=== PATIENT | female | born 1950 | race American Indian/Alaskan Native ===

== ENCOUNTER 2018-01-03 14:15 | Emergency (ER) | payer MEDICARE ==
--- NOTE | 2018-01-03 14:54 | Emergency Department Report ---
Blank Doc - Documentation Documentation: Patient is a 67-year-old black female who is complaining of chest pain. Patient states that she only gets chest pain for last several months when she gets cold. Patient was at her doctor's office and mentioned this and she was sent in for evaluation. Patient states that there is no shortness of breath is no exertional component to her chest discomfort and it only occurs when she is cold when she goes out to the side or moves to a warmer area her chest pain dissipates. Patient states that she has had AL in the past that was a heavy sensation she states this feels much different from. Patient denies any cough cold congestion and fevers chills at this time. The patient's EKG was reviewed and this does not appear to be a STEMI present. Patient's was Warmed Blankets s she remained warm. Chest x-ray and troponin was ordered to rule out acute coronary syndrome. Patient is chest pain-free and has been for several hours. .
[2018-01-03 16:10] LABS: Chol/HDL Ratio 4.5 %
--- NOTE | 2018-01-03 16:42 | XRay Report ---
FINAL REPORT EXAM: XR CHEST ROUTINE 2V HISTORY: chest pain TECHNIQUE: Frontal portable view of the chest Comparison: Chest x-ray dated October 09, 2017 FINDINGS: There is probable atelectasis in the left lateral lung base. There is no evidence of pneumothorax or pleural fluid collection. The cardiac silhouette is enlarged with evidence of coronary artery stents. The thoracic aorta is mildly tortuous with atherosclerotic vascular calcification. The bony structures are notable for median sternotomy wires. Visualization detail of the thoracic spine is limited. IMPRESSION: 1. Probable atelectasis left lung base. 2. Stable enlarged cardiac silhouette with evidence of coronary artery stents.
[2018-01-03 17:20] LABS: Basophils # (Auto) 0.1 K/mm3 (0.0-0.1); Basophils % (Auto) 2.6 % (0.0-1.8); Eosinophils # (Auto) 0.2 K/mm3 (0.0-0.4); Eosinophils % (Auto) 5.7 % (0.0-4.3); Hematocrit 32.1 % (30.3-42.9); Hemoglobin 10.5 gm/dl (10.1-14.3); Lymphocytes % (Auto) 33.9 % (13.4-35.0); Mean Corpuscular HGB Conc 33 % (30-34); Mean Corpuscular Volume 74 fl (79-97); Monocytes # (Auto) 0.3 K/mm3 (0.0-0.8); Monocytes % (Auto) 8.2 % (0.0-7.3); Platelet Count 119 K/mm3 (140-440); Red Blood Count 4.36 M/mm3 (3.65-5.03)
[2018-01-03 17:25] LABS: Mean Corpuscular Hemoglobin 24 pg (28-32)
[2018-01-03 17:35] LABS: Creatine Kinase MB 4.5 ng/mL (0.0-4.0)
[2018-01-03 17:37] LABS: Calcium 9.4 mg/dL (8.4-10.2)
--- NOTE | 2018-01-03 18:49 | Emergency Department Report ---
ED Chest Pain HPI - General Chief Complaint: Back Pain/Injury Stated Complaint: ABNORMAL EKG Time Seen by Provider: 01/03/18 14:44 Source: patient Mode of arrival: Wheelchair Limitations: No Limitations - History of Present Illness Initial Comments: This is a 67-year-old female nontoxic, well nourished in appearance, no acute signs of distress presents to the ED with c/o of intermittent chest pain x2 months. Patient stated she only develops chest pain when she becomes cold. Patient stated she went to her doctors office today and told the DrKathy that she develops chest pain when cold and the Doctor send her to the ED for further evaluation. Patient denies any radiation of pain. Patient describes pain as aching intermittently. Patient denies any upper respiratory symptoms. Patient denies any shortness of breath, hemoptysis, fever, chills, nausea, vomiting, headache, stiff neck, numbness, tingling, abdominal pain. Patient denies pleuritic chest pain. Patient denies any recent travels or long car rides. Patient denies any recent surgeries or any sick contacts. Patient stated she does have a risk analyst and next appointment is this week. MD Complaint: chest pain -: month(s) (2) Pain Radiation: none Severity: mild Severity scale (0 -10): 3 Quality: aching Consistency: intermittent, now resolved Improves With: other (warm) Worsens With: other (cold) re: denies: nausea, vomting, diaphoresis, dyspnea, sense of impending doom Other Symptoms: denies: cough, fever, syncope, rash, acid taste in mouth, leg swelling, palpitations, burping - Related Data On Oral Contraceptives: No Home Medications Medication Instructions Recorded Confirmed Last Taken Lispro Insulin [Humalog] 41 units SUB-Q ACHS 12/18/17 12/18/17 Unknown Previous Rx's Medication Instructions Recorded Last Taken Type Potassium Chloride [K-Dur] 10 meq PO QDAY tablet 08/15/15 1 Day Ago Rx ~09/17/17 Furosemide [Lasix TAB] 40 mg PO QDAY #30 tablet 10/12/17 Unknown Rx Amlodipine Besylate [Norvasc] 10 mg PO QDAY #30 tablet 12/20/17 Unknown Rx Aspirin [Aspirin BABY CHEW TAB] 81 mg PO QDAY #30 tab.chew 12/20/17 Unknown Rx Carbidopa/Levodopa 25-100 [Sinemet 1 each PO TID #90 tablet 12/20/17 Unknown Rx 25/100] Carvedilol [Coreg] 12.5 mg PO BID #60 tablet 12/20/17 Unknown Rx Gabapentin [Neurontin] 100 mg PO BID #60 capsule 12/20/17 Unknown Rx ISOSORBIDE MONOnitrate [Imdur ER] 30 mg PO QDAY #30 tablet 12/20/17 Unknown Rx Insulin Glargine [Lantus VIAL] 40 units SUB-Q QHS #30 units 12/20/17 Unknown Rx Lispro Insulin [Humalog] 0 unit SUB-Q ACHS units 12/20/17 Unknown Rx Losartan [Cozaar] 25 mg PO QDAY #30 tablet 12/20/17 Unknown Rx Ropinirole HCl [rOPINIRole] 2 mg PO TID #90 tablet 12/20/17 Unknown Rx hydrALAZINE [Apresoline TAB] 100 mg PO BID #60 tab 12/20/17 Unknown Rx Acetaminophen 500 mg PO Q8H PRN #30 tablet 01/03/18 Unknown Rx Allergies Allergy/AdvReac Type Severity Reaction Status Date / Time Penicillins Allergy Hives Verified 10/09/17 16:56 [id number]-Xsb-Axx Reductase Allergy Unknown Verified 10/09/17 16:56 Inhibitor acetaminophen [From Percocet] AdvReac Unknown Verified 10/09/17 16:56 oxycodone [From Percocet] AdvReac Unknown Verified 10/09/17 16:56 Heart Score - HEART Score History: Slightly suspicious EKG: Non-specific Age: > 65 Risk factors: > 3 risk factors or hx of atherosclerotic disease Troponin: 1-3x normal limit HEART Score: 6 ED Review of Systems ROS: Stated complaint: ABNORMAL EKG Other details as noted in HPI Constitutional: denies: chills, fever Eyes: denies: eye pain, eye discharge, vision change ENT: denies: ear pain, throat pain Respiratory: denies: cough, shortness of breath, wheezing Cardiovascular: chest pain. denies: palpitations Endocrine: no symptoms reported Gastrointestinal: denies: abdominal pain, nausea, diarrhea Genitourinary: denies: urgency, dysuria, discharge Musculoskeletal: denies: back pain, joint swelling, arthralgia Skin: denies: rash, lesions Neurological: denies: headache, weakness, paresthesias Psychiatric: denies: anxiety, depression Hematological/Lymphatic: denies: easy bleeding, easy bruising ED Past Medical Hx - Past Medical History Previous Medical History?: Yes Hx Hypertension: Yes Hx Heart Attack/AMI: Yes (2011) Hx Congestive Heart Failure: Yes Hx Diabetes: Yes Hx Deep Vein Thrombosis: No Hx Pulmonary Embolism: No Hx Liver Disease: No Hx Renal Disease: No Hx Sickle Cell Disease: No Hx Arthritis: Yes Hx Seizures: No Hx Kidney Stones: No Hx Asthma: No Hx COPD: No Hx Tuberculosis: No Hx Dementia: No Hx HIV: No Additional medical history: Parkinson's, CABG, valve replacement, peripheral vascular disease, Gout. CAD - Surgical History Past Surgical History?: Yes Hx Coronary Stent: No Hx Open Heart Surgery: Yes (CABG 3 vessel, tissue aortic valve replaced 2011) Hx Pacemaker: No Hx Internal Defibrillator: No Hx Cholecystectomy: Yes Hx Appendectomy: No Hx Breast Surgery: No Additional Surgical History: Stents to lower extremities. c section - Social History Smoking Status: Former Smoker Substance Use Type: Alcohol - Medications Home Medications: Home Medications Medication Instructions Recorded Confirmed Last Taken Type Potassium Chloride [K-Dur] 10 meq PO QDAY tablet 08/15/15 12/18/17 1 Day Ago Rx ~09/17/17 Furosemide [Lasix TAB] 40 mg PO QDAY #30 tablet 10/12/17 12/18/17 Unknown Rx Lispro Insulin [Humalog] 41 units SUB-Q ACHS 12/18/17 12/18/17 Unknown History Amlodipine Besylate [Norvasc] 10 mg PO QDAY #30 tablet 12/20/17 Unknown Rx Aspirin [Aspirin BABY CHEW TAB] 81 mg PO QDAY #30 tab.chew 12/20/17 Unknown Rx Carbidopa/Levodopa 25-100 [Sinemet 1 each PO TID #90 tablet 12/20/17 Unknown Rx 25/100] Carvedilol [Coreg] 12.5 mg PO BID #60 tablet 12/20/17 Unknown Rx Gabapentin [Neurontin] 100 mg PO BID #60 capsule 12/20/17 Unknown Rx ISOSORBIDE MONOnitrate [Imdur ER] 30 mg PO QDAY #30 tablet 12/20/17 Unknown Rx Insulin Glargine [Lantus VIAL] 40 units SUB-Q QHS #30 units 12/20/17 Unknown Rx Lispro Insulin [Humalog] 0 unit SUB-Q ACHS units 12/20/17 Unknown Rx Losartan [Cozaar] 25 mg PO QDAY #30 tablet 12/20/17 Unknown Rx Ropinirole HCl [rOPINIRole] 2 mg PO TID #90 tablet 12/20/17 Unknown Rx hydrALAZINE [Apresoline TAB] 100 mg PO BID #60 tab 12/20/17 Unknown Rx Acetaminophen 500 mg PO Q8H PRN #30 tablet 01/03/18 Unknown Rx ED Physical Exam - General Limitations: No Limitations General appearance: alert, in no apparent distress - Head Head exam: Present: atraumatic, normocephalic - Eye Eye exam: Present: normal appearance Pupils: Present: normal accommodation - ENT ENT exam: Present: normal exam, mucous membranes moist - Neck Neck exam: Present: normal inspection, full ROM. Absent: tenderness, meningismus, lymphadenopathy - Respiratory Respiratory exam: Present: normal lung sounds bilaterally. Absent: respiratory distress, wheezes, rales, rhonchi, stridor, chest wall tenderness, accessory muscle use, decreased breath sounds, prolonged expiratory - Cardiovascular Cardiovascular Exam: Present: regular rate, normal rhythm, normal heart sounds. Absent: bradycardia, tachycardia, irregular rhythm, systolic murmur, diastolic murmur, rubs, gallop - GI/Abdominal GI/Abdominal exam: Present: soft, normal bowel sounds. Absent: distended, tenderness, guarding, rebound, rigid, diminished bowel sounds - Rectal Rectal exam: Present: deferred - Extremities Exam Extremities exam: Present: normal inspection, full ROM, normal capillary refill. Absent: tenderness - Back Exam Back exam: Present: normal inspection, full ROM. Absent: tenderness, CVA tenderness (R), CVA tenderness (L), muscle spasm, paraspinal tenderness, vertebral tenderness, rash noted - Neurological Exam Neurological exam: Present: alert, oriented X3, normal gait - Psychiatric Psychiatric exam: Present: normal affect, normal mood - Skin Skin exam: Present: warm, dry, intact, normal color. Absent: rash ED Course Vital Signs 01/03/18 14:28 Temperature 98.7 F Pulse Rate 63 Respiratory 18 Rate Blood Pressure 132/84 O2 Sat by Pulse 96 Oximetry - Reevaluation(s) Reevaluation #1: 01/03/18 18:50 Patient is speaking in full sentences with no signs of distress noted. - Consultations Consultation #1: 01/03/18 18:56 Patient has been consulted with Emilia Granados about patient history, physical exam, and labs/Chest xray and examined and screened patient and stated to discharge with follow-up. JIMI score - Jimi Score Age > 65: (1) Yes Aspirin use within the Past 7 Days: (1) Yes 3 or more CAD Risk Factors: (1) Yes 2 or more Angina events in past 24 hrs: (0) No Known CAD with more than 50% Stenosis: (1) Yes Elevated Cardiac Markers: (1) Yes ST Deviation Greater than 0.5mm: (0) No JIMI Score: 5 ED Medical Decision Making - Lab Data Result diagrams: 01/03/18 17:04 01/03/18 17:04 - Medical Decision Making This is a 67-year-old female that presents with intermittent chest pain. Patient is stable and was examined by me and Emilia Granados. Curretnly in the ED the patient has 2 blankets and warm which patient states symptoms of chest pain has resolved JIMI and HEART score is elevated. Elevated trop x2. Wells criteria for DVT/SVT/PE 0 points. EKG obtained with no signifant changes from pervious, as per Emilia Granados. Chest xray dictated by the radiologist. Patient is notified of the Xray report with no questions noted. Labs obtained. Patient was discussed with Dr. Arias for admission. As per Emilia Granados. patient to be discharged due to a normal Stress test, echocardiogram, and nuclear studies on 12/19/2017. Patient was instructed to Follow-up with a risk analyst doctor in 24 hours or if symptoms worsen and continue return to emergency room as soon as possible. At time of discharge, the patient does not seem toxic or ill in appearance. No acute signs of distress noted. Patient agrees to discharge treatment plan of care. No further questions noted by the patient. Critical care attestation.: If time is entered above; I have spent that time in minutes in the direct care of this critically ill patient, excluding procedure time. ED Disposition Clinical Impression: Chest pain Qualifiers: Chest pain type: unspecified Qualified Code(s): R07.9 - Chest pain, unspecified Disposition: DC-01 TO HOME OR SELFCARE Is pt being admited?: No Does the pt Need Aspirin: No Condition: Stable Instructions: Chest Pain (ED) Additional Instructions: Follow-up with a risk analyst doctor in 24 hours or if symptoms worsen and continue return to emergency room as soon as possible. Prescriptions: Acetaminophen 500 mg PO Q8H PRN #30 tablet PRN Reason: Pain, Moderate (4-6) Referrals: PRIMARY CARE, [Primary Care Provider] - 3-5 Days TISHA TAYLOR MD [Staff Physician] - 3-5 Days DANAE CARRERA MD [Staff Physician] - 3-5 Days [facility] [Outside] - 3-5 Days
[2018-01-03 19:37] VITALS: BP 166/78
== END 2018-01-03 19:33 | disposition home or self-care (01) ==
LOC: ED 14:15
DX: R07.89 Other chest pain (principal); I11.0 Hypertensive heart disease with heart failure; E11.9 Type 2 diabetes mellitus without complications; M19.90 Unspecified osteoarthritis, unspecified site; G20 Parkinson's disease; I73.9 Peripheral vascular disease, unspecified; M10.9 Gout, unspecified; Z87.891 Personal history of nicotine dependence; Z95.1 Presence of aortocoronary bypass graft; Z79.4 Long term (current) use of insulin; Z88.0 Allergy status to penicillin; Z88.8 Allergy status to other drugs, medicaments and biological substances; Z90.49 Acquired absence of other specified parts of digestive tract; Z79.82 Long term (current) use of aspirin
CPT/HCPCS: 36415; 71046; 80048; 80061; 82550; 82553; 84484; 85025; 93005; 93010; 99283

== ENCOUNTER 2018-02-17 14:58 | Emergency (ER) | payer MEDICARE ==
[2018-02-17 15:26] VITALS: BP 154/54
[2018-02-17] MEDS ORDERED: MORPHINE IV ONE (15:53)
[2018-02-17] MEDS ORDERED: ZOFRAN IV ONE (15:53)
--- NOTE | 2018-02-17 15:57 | Emergency Department Report ---
ED General Adult HPI - General Chief complaint: Extremity Problem,Nontraumatic Stated complaint: PAIN IN (R) HAND Time Seen by Provider: 02/17/18 15:46 Source: patient, EMS Mode of arrival: Stretcher Limitations: No Limitations - History of Present Illness Initial comments: Patient is 67 history of hypertension, Parkinson disease, coronary artery disease and arthritis. Patient presented to the ER complaining of pain in her right and especially at the metacarpal phalangeal joints. She also stated that she's been having some pain in her neck and having difficulty turning her neck right to left. Patient denied any headache, weakness, numbness or tingling sensation. She also complained of pain all over. Severity scale (0 -10): 7 - Related Data Home Medications Medication Instructions Recorded Confirmed Last Taken Lispro Insulin [Humalog] 41 units SUB-Q ACHS 12/18/17 12/18/17 Unknown Previous Rx's Medication Instructions Recorded Last Taken Type Potassium Chloride [K-Dur] 10 meq PO QDAY tablet 08/15/15 1 Day Ago Rx ~09/17/17 Furosemide [Lasix TAB] 40 mg PO QDAY #30 tablet 10/12/17 Unknown Rx Amlodipine Besylate [Norvasc] 10 mg PO QDAY #30 tablet 12/20/17 Unknown Rx Aspirin [Aspirin BABY CHEW TAB] 81 mg PO QDAY #30 tab.chew 12/20/17 Unknown Rx Carbidopa/Levodopa 25-100 [Sinemet 1 each PO TID #90 tablet 12/20/17 Unknown Rx 25/100] Carvedilol [Coreg] 12.5 mg PO BID #60 tablet 12/20/17 Unknown Rx Gabapentin [Neurontin] 100 mg PO BID #60 capsule 12/20/17 Unknown Rx ISOSORBIDE MONOnitrate [Imdur ER] 30 mg PO QDAY #30 tablet 12/20/17 Unknown Rx Insulin Glargine [Lantus VIAL] 40 units SUB-Q QHS #30 units 12/20/17 Unknown Rx Lispro Insulin [Humalog] 0 unit SUB-Q ACHS units 12/20/17 Unknown Rx Losartan [Cozaar] 25 mg PO QDAY #30 tablet 12/20/17 Unknown Rx Ropinirole HCl [rOPINIRole] 2 mg PO TID #90 tablet 12/20/17 Unknown Rx hydrALAZINE [Apresoline TAB] 100 mg PO BID #60 tab 12/20/17 Unknown Rx Acetaminophen 500 mg PO Q8H PRN #30 tablet 01/03/18 Unknown Rx Allergies Allergy/AdvReac Type Severity Reaction Status Date / Time Penicillins Allergy Hives Verified 10/09/17 16:56 Lhgicsl-Wto-Dty Reductase Allergy Unknown Verified 10/09/17 16:56 Inhibitor acetaminophen [From Percocet] AdvReac Unknown Verified 10/09/17 16:56 oxycodone [From Percocet] AdvReac Unknown Verified 10/09/17 16:56 ED Review of Systems ROS: Stated complaint: PAIN IN (R) HAND Other details as noted in HPI Comment: All other systems reviewed and negative Constitutional: denies: chills, fever Respiratory: denies: cough, orthopnea, shortness of breath, SOB with exertion, wheezing Cardiovascular: denies: chest pain, palpitations Gastrointestinal: denies: abdominal pain, nausea, vomiting, diarrhea, constipation, hematemesis, hematochezia Neurological: denies: headache, weakness, numbness, paresthesias, confusion, abnormal gait ED Past Medical Hx - Past Medical History Previous Medical History?: Yes Hx Hypertension: Yes Hx Heart Attack/AMI: Yes (2011) Hx Congestive Heart Failure: Yes Hx Diabetes: Yes Hx Deep Vein Thrombosis: No Hx Pulmonary Embolism: No Hx Liver Disease: No Hx Renal Disease: Yes Hx Sickle Cell Disease: No Hx Arthritis: Yes Hx Seizures: No Hx Kidney Stones: No Hx Asthma: No Hx COPD: No Hx Tuberculosis: No Hx Dementia: No Hx HIV: No Additional medical history: Parkinson's, CABG, valve replacement, peripheral vascular disease, Gout. CAD - Surgical History Past Surgical History?: Yes Hx Coronary Stent: No Hx Open Heart Surgery: Yes (CABG 3 vessel, tissue aortic valve replaced 2011) Hx Pacemaker: No Hx Internal Defibrillator: No Hx Cholecystectomy: Yes Hx Appendectomy: No Hx Breast Surgery: No Additional Surgical History: Stents to lower extremities. c section - Social History Smoking Status: Never Smoker Substance Use Type: None - Medications Home Medications: Home Medications Medication Instructions Recorded Confirmed Last Taken Type Potassium Chloride [K-Dur] 10 meq PO QDAY tablet 08/15/15 12/18/17 1 Day Ago Rx ~09/17/17 Furosemide [Lasix TAB] 40 mg PO QDAY #30 tablet 10/12/17 12/18/17 Unknown Rx Lispro Insulin [Humalog] 41 units SUB-Q ACHS 12/18/17 12/18/17 Unknown History Amlodipine Besylate [Norvasc] 10 mg PO QDAY #30 tablet 12/20/17 Unknown Rx Aspirin [Aspirin BABY CHEW TAB] 81 mg PO QDAY #30 tab.chew 12/20/17 Unknown Rx Carbidopa/Levodopa 25-100 [Sinemet 1 each PO TID #90 tablet 12/20/17 Unknown Rx 25/100] Carvedilol [Coreg] 12.5 mg PO BID #60 tablet 12/20/17 Unknown Rx Gabapentin [Neurontin] 100 mg PO BID #60 capsule 12/20/17 Unknown Rx ISOSORBIDE MONOnitrate [Imdur ER] 30 mg PO QDAY #30 tablet 12/20/17 Unknown Rx Insulin Glargine [Lantus VIAL] 40 units SUB-Q QHS #30 units 12/20/17 Unknown Rx Lispro Insulin [Humalog] 0 unit SUB-Q ACHS units 12/20/17 Unknown Rx Losartan [Cozaar] 25 mg PO QDAY #30 tablet 12/20/17 Unknown Rx Ropinirole HCl [rOPINIRole] 2 mg PO TID #90 tablet 12/20/17 Unknown Rx hydrALAZINE [Apresoline TAB] 100 mg PO BID #60 tab 12/20/17 Unknown Rx Acetaminophen 500 mg PO Q8H PRN #30 tablet 01/03/18 Unknown Rx ED Physical Exam - General Limitations: No Limitations General appearance: alert, in no apparent distress - Head Head exam: Present: atraumatic, normocephalic, normal inspection - Eye Eye exam: Present: normal appearance - ENT ENT exam: Present: normal exam, normal orophraynx, mucous membranes moist - Neck Neck exam: Present: normal inspection. Absent: tenderness, meningismus, full ROM (decreased range of motion) - Respiratory Respiratory exam: Present: normal lung sounds bilaterally. Absent: respiratory distress, wheezes, rales, rhonchi, chest wall tenderness, accessory muscle use, decreased breath sounds, prolonged expiratory - Cardiovascular Cardiovascular Exam: Present: regular rate, normal rhythm, normal heart sounds - GI/Abdominal GI/Abdominal exam: Present: soft, normal bowel sounds. Absent: distended, tenderness, guarding, rebound, rigid, organomegaly, mass, bruit, pulsatile mass - Extremities Exam Extremities exam: Present: normal inspection, full ROM, normal capillary refill. Absent: pedal edema, calf tenderness - Back Exam Back exam: Present: normal inspection, full ROM - Neurological Exam Neurological exam: Present: alert, oriented X3, CN II-XII intact ED Course Vital Signs 02/17/18 15:17 Temperature 98.0 F Pulse Rate 66 Respiratory 20 Rate Blood Pressure 154/54 Blood Pressure 154/54 [Right] O2 Sat by Pulse 99 Oximetry ED Medical Decision Making - Lab Data Result diagrams: 02/17/18 16:04 02/17/18 16:04 - Radiology Data Radiology results: report reviewed Right hand x-ray showed osteoarthritic changes, no acute fracture Or dislocation. - Medical Decision Making Patient is 67 history of hypertension, Parkinson disease, coronary artery disease and arthritis. Patient presented to the ER complaining of pain in her right and especially at the metacarpal phalangeal joints. She also stated that she's been having some pain in her neck and having difficulty turning her neck right to left. Patient denied any headache, weakness, numbness or tingling sensation. She also complained of pain all over. Patient stated that she is feeling much better. She told me that she had a CT neck recently and that the elevation of arthritis in her neck with no other acute abnormalities. Patient received morphine for pain. X-ray of the hand show osteoarthritic changes with no acute fracture or dislocation. Labs reviewed and did not show any evidence of infection. I prescribed patient Ultram and advised to follow with her primary care physician in the next 2-3 days. Critical care attestation.: If time is entered above; I have spent that time in minutes in the direct care of this critically ill patient, excluding procedure time. ED Disposition Clinical Impression: Hand pain, right, Neck pain Disposition: DC-01 TO HOME OR SELFCARE Is pt being admited?: No Condition: Stable Instructions: Osteoarthritis (ED), Cervical Sprain (ED) Referrals: PRIMARY CARE, [Primary Care Provider] - 3-5 Days
[2018-02-17 16:24] LABS: Basophils # (Auto) 0.1 K/mm3 (0.0-0.1); Basophils % (Auto) 2.2 % (0.0-1.8); Eosinophils # (Auto) 0.1 K/mm3 (0.0-0.4); Eosinophils % (Auto) 3.3 % (0.0-4.3); Hemoglobin 11.3 gm/dl (10.1-14.3); Lymphocytes # (Auto) 0.9 K/mm3 (1.2-5.4); Lymphocytes % (Auto) 23.9 % (13.4-35.0); Mean Corpuscular HGB Conc 32 % (30-34); Mean Corpuscular Hemoglobin 24 pg (28-32); Mean Corpuscular Volume 74 fl (79-97); Monocytes # (Auto) 0.3 K/mm3 (0.0-0.8); Monocytes % (Auto) 7.7 % (0.0-7.3); Platelet Count 123 K/mm3 (140-440); Red Blood Count 4.72 M/mm3 (3.65-5.03); Red Cell Distribution Width 17.3 % (13.2-15.2)
[2018-02-17 16:55] LABS: Calcium 9.6 mg/dL (8.4-10.2)
--- NOTE | 2018-02-17 17:05 | XRay Report ---
FINAL REPORT EXAM: XR HAND 3+V RT HISTORY: hand pain, 2nd finger TECHNIQUE: Right hand three views PRIORS: None. FINDINGS: There is degenerative joint space narrowing with small marginal osteophyte present DIP and PIP joints of the 2nd through 5th digits. No erosive bony changes are identified. No acute fracture or dislocation is seen. No radiopaque bodies observed IMPRESSION: Osteoarthritic changes involving the PIP and DIP joints 2nd through 5th digits
== END 2018-02-17 19:00 | disposition home or self-care (01) ==
LOC: ED 14:58
DX: M79.641 Pain in right hand (principal); M54.2 Cervicalgia; I11.0 Hypertensive heart disease with heart failure; I50.9 Heart failure, unspecified; I25.2 Old myocardial infarction; E11.9 Type 2 diabetes mellitus without complications; M19.90 Unspecified osteoarthritis, unspecified site; Z90.49 Acquired absence of other specified parts of digestive tract; Z95.1 Presence of aortocoronary bypass graft; Z88.6 Allergy status to analgesic agent; Z88.0 Allergy status to penicillin; Z88.8 Allergy status to other drugs, medicaments and biological substances; Z79.4 Long term (current) use of insulin
CPT/HCPCS: 36415; 73130; 80053; 85025; 96374; 96375; 99284; J2270; J2405